=== PATIENT | male | born 1985 | race Caucasian/White ===

== ENCOUNTER 2020-05-28 18:28 | Emergency (ER) | payer OTHER, SELFPAY ==
[2020-05-28 18:28] VITALS: BP 138/88; PULSE 56; RESP 18; TEMP 35.8; O2SAT 100; BMI 23.4
--- NOTE | 2020-05-28 18:37 | CT_ITS ---
STUDY: CT ABDOMEN AND PELVIS WITHOUT CONTRAST REASON FOR EXAM: Male, 35 years old. LT FLANK AND BACK PAIN RADIATION DOSAGE (If Supplied By Facility): CTDIvol = ( 6.37 ) mGy, DLP = ( 308.58 ) mGycm TECHNIQUE: Transaxial images were obtained from the dome of the diaphragm to the symphysis pubis without oral contrast, and without intravenous contrast. Sagittal and coronal images were reconstructed. Individualized dose optimization techniques were used for this CT. COMPARISON: None. FINDINGS: The visualized lung bases are unremarkable. The visualized portions of the heart are within normal limits. Normal liver. Normal gallbladder and extrahepatic biliary system. Normal spleen. Normal pancreas. 23 x 22 mm left adrenal adenoma. Normal right kidney. 1 mm nonobstructing left renal stone. Normal visualized stomach. Normal small intestine. Normal colon. The appendix is visualized and appears normal. Normal abdominal aorta. Normal inferior vena cava. Normal retroperitoneum. A 1 mm stone is present in the right posterior bladder base. Normal abdominal wall. Normal osseous structures. CT/Abdomen/Pelvis without Cont IMPRESSION: A 1 mm stone is present in the right posterior bladder base. No evidence of acute intestinal pathology or acute obstructive uropathy. Left adrenal adenoma. Electronically Signed: Willem Arroyo MD at 19:40 EDT Tel , Service support ,
--- NOTE | 2020-05-28 18:37 | ED.DCSUM_ITS ---
History of Present Illness Chief Complaint: Back Informant: Patient Onset: Today Context: Sudden Onset Current Severity: Mild Maximum Severity: Moderate Narrative: Patient presents with rather abrupt onset of left sided back pain. He states it is wrapping around his side towards his lower abdomen. He has felt slightly nauseated and clammy. He denies history of kidney stones. He does report chronic history of mild hematuria. He is undergone work-up in the past but no cause was found. Past Medical History - Allergies and Home Meds Allergies/Adverse Reactions: Allergies No Known Allergies Allergy (Verified 05/28/20 18:30) Primary Care Physician: NOT,DEFINED [NON-STAFF] - Past Medical History: None Lives: Spouse/ Significant Other Review of Systems General: Denies: Chills, Fever Eyes: Denies: Visual changes - bilaterally ENT: Denies: Bilateral ear pain Cardiovascular: Denies: Chest pain Respiratory: Denies: Dyspnea, Cough Gastrointestinal: Reports: Abdominal pain, Nausea. Denies: Vomiting Genitourinary: Denies: Dysuria, Hematuria Musculoskeletal: Reports: Back pain - Left flank pain Skin: Denies: Rash Neurological: Denies: Headache Hematologic: Denies: Easy bruising Allergy: Denies: Uticaria Physical Exam Vital Signs/Narrative: Vital Signs Temp Pulse Resp BP Pulse Ox 05/28/20 18:28 96.5 F L 56 L 18 138/88 H 100 Inital Vital Signs reviewed: Yes General: Well nourished, Well developed Head: Normocephalic ENT: Moist mucous membranes Neck: Supple Cardiovascular: Regular rate, Regular rhythm Respiratory: No distress, CTA bilaterally Abdomen: Soft, Nontender Back: Nontender. Negative for: CVA tenderness Skin: Normal color Neurological: Alert, Oriented x3 Psychological: Normal affect Diagnostic/Tx/Re-eval Impressions Abdomen/Pelvis CT 05/28/20 18:37 IMPRESSION: A 1 mm stone is present in the right posterior bladder base. No evidence of acute intestinal pathology or acute obstructive uropathy. Left adrenal adenoma. Electronically Signed: Willem Arroyo MD at 19:40 EDT Tel , Service support , 05/28/20 18:37 Abdomen/Pelvis without Cont [CT] Stat Laboratory Results 05/28/20 05/28/20 19:10 19:10 WBC 8.2 RBC 5.13 Hgb 15.3 Hct 46.8 MCV 91.2 MCH 29.8 MCHC 32.7 RDW Std Deviation 39.7 RDW Coeff of Padmini 11.9 Plt Count 184 MPV 10.8 Immature Gran % (Auto) 0.400 Neut % (Auto) 49.4 Lymph % (Auto) 37.8 [place] % (Auto) 9.4 Eos % (Auto) 2.6 Baso % (Auto) 0.4 Absolute Neuts (auto) 4.1 Absolute Lymphs (auto) 3.10 Nucleated RBC % 0 Sodium 144 Potassium 3.9 Chloride 109 H Carbon Dioxide 30.0 Anion Gap 5 BUN 17 Creatinine 1.18 Estim Creat Clear Calc 82.92 Est GFR (MDRD) Af Amer 89 Est GFR (MDRD) Non-Af 74 BUN/Creatinine Ratio 14.4 Glucose 112 H Calcium 9.1 - Medical Decision Making Patient was given Toradol, Zofran, and IV fluids. On repeat evaluation his pain is resolved. CT scan does reveal a 1 mm stone in the bladder. Patient is giv en a urine sample at this time but patient will be discharged home. I will write him for Toradol as needed. He will be given Dr. Beckwith's number if he develops any complications. ED Disposition - Plan for ED Patient: Disposition: Home or Assisted Living Diagnosis: Kidney stone Instructions: ED RENAL STONE Passed Prescriptions: Ketorolac [Toradol] 10 mg PO Q6H PRN #10 tablet PRN Reason: Pain Score 4-10/10 Referrals: Jordan Beckwith MD [STAFF PHYSICIAN] - As Needed
[2020-05-28] MEDS: 0.9% Normal Saline 1,000 ML 250 ML IV (19:05)
[2020-05-28] MEDS: Ondansetron 4 MG/2 ML Vial IV (19:05)
[2020-05-28] MEDS: Ketorolac 30 MG/ML Syringe IV (19:05)
[2020-05-28 19:37] LABS: Absolute Neutrophil Count 4.1 X10^3/uL (2.0-7.7); Basophil# 0.03 X10^3/uL; Basophil% 0.4 % (0-1); Eosinophil# 0.21 X10^3/uL; Eosinophils% 2.6 % (0-5); Hematocrit 46.8 % (40-54); Hemoglobin 15.3 g/dL (13.0-16.5); Lymphocyte % 37.8 % (19-41); Mean Corp Hgb Conc 32.7 g/dL (32-36); Mean Corpuscular Hgb 29.8 pg (27.0-32.0); Mean Corpuscular Volume 91.2 fL (80-94); Mean Platelet Vol. 10.8 fl (6.2-12.0); Monocyte# 0.77 X10^3/uL; Monocyte% 9.4 % (0-10); NRBC Flagged by Analyzer 0 % (0-5); Neutrophil # 4.07 X10^3/uL (2.7-7.7); Neutrophil % 49.4 % (47-70); Platelet Count 184 K/mm3 (150-450); RBC Distribution Width CV 11.9 % (11.6-14.6); RBC Distribution Width SD 39.7 fl (35.1-43.9); Red Blood Count 5.13 M/mm3 (4.6-6.2); White Blood Count 8.2 K/mm3 (4.4-11.0)
[2020-05-28 19:46] LABS: Anion Gap 5 (5-15); BUN 17 mg/dL (7-18); BUN/Creat Ratio 14.4 RATIO (10-20); Calcium,Total 9.1 mg/dL (8.5-10.1); Chloride 109 mmol/L (98-107); Creatinine, Serum 1.18 mg/dL (0.70-1.30); EST Glomerular Filtration Rate 74 mL/min (>60); Est Glom Filt Rate - Afr Amer 89 mL/min (>60); Estimated Creatinine Clearance 82.92 ml/min; Glucose 112 mg/dL (74-106); Potassium 3.9 mmol/L (3.5-5.1); Sodium Level 144 mmol/L (136-145)
[2020-05-28 20:06] LABS: Squamous Epithelial Cells - UA 0 SEEN /hpf (0-5)
[2020-05-28 20:08] LABS: Color, Urine Straw (Yellow); Glucose, Dipstick Normal (Normal); Ketone-Dipstick 50 mg/dl (Negative); Leukocyte Esterase-Dipstick 25 /ul (Negative); Nitrite-Dipstick Negative (Negative); Occult Blood-Urine 250 /ul (Negative); Protein-Dipstick Negative (Negative); Urine Bilirubin Dipstick Negative (Negative); Urine Clarity Clear (Clear); Urine Urobilinogen Normal (Normal)
[2020-05-28 20:16] VITALS: RESP 18
[2020-05-28 20:16] LABS: Bacteria 1+ /hpf (None Seen); Mucous, Urine 2+ /hpf (<or=2+); Red Blood Cells-Urine 10-25 SEEN /hpf (0-5); White Blood Cells 0-5 SEEN /hpf (0-5)
== END 2020-05-28 20:19 | disposition home or self-care (01) ==
PROVIDERS: Emergency Provider Emergency Medicine
DX: N20.0 Calculus of kidney (principal); D35.02 Benign neoplasm of left adrenal gland
CPT/HCPCS: 74176; 80048; 81001; 85025; 96361; 96374; 96375; 99284; J7030; A4216; J2405